=== PATIENT | male | born 1935 | race African-American/Black ===

== ENCOUNTER → 2016-06-03 | Outpatient (REF) | payer MEDICARE, OTHER ==
[~2016-06-03] MED LIST: /ACET5TA PO; /CLON1TA TOP; /HYDR10TAB GT; ALDA25TA2 PO; AMLO10TA2 PO; BISO10TA6 PO; CHLO125TA PO; COZA100T2 PO; HYDR100T13 PO; LEVO75TA3 PO; OMEP20CA3 PO; PRED10TA2 PO; PRIL20CA PO; ducolax PO; hydralazine PO
== END ==
LOC: M LAB REF 16:28
PROVIDERS: ATTEND Internal Medicine
DX: D51.9 Vitamin B12 deficiency anemia, unspecified (principal); E78.5 Hyperlipidemia, unspecified

== ENCOUNTER → 2017-02-28 | Outpatient (REF) | payer MEDICARE, OTHER ==
[2017-02-28 15:24] LABS: BASO % 0.4 % (0.0-1.0); EOS # 0.2 10^3/uL (0.0-0.50); EOS % 3.1 % (0.0-3.0); HEMATOCRIT 37.1 % (42.0-52.0); HEMOGLOBIN 12.2 g/dl (14.0-18.0); IMMATURE GRANULOCYTE % 0.2 % (0-0); LYMPH # 1.7 10^3/uL (1.5-4.5); LYMPH % 32.3 % (24.0-44.0); MEAN CORPUSCULAR HEMOGLOBIN 28.4 pg (27.0-33.0); MEAN CORPUSCULAR HGB CONC 32.9 g/dl (32.0-36.5); MEAN CORPUSCULAR VOLUME 86.5 fl (80.0-96.0); MONO # 0.6 10^3/uL (0.0-0.8); MONO % 11.2 % (0.0-5.0); NEUTROPHILS # 2.8 10^3/uL (1.8-7.7); NEUTROPHILS % 52.8 % (36.0-66.0); PLATELET COUNT, AUTOMATED 228 10^3/uL (150-450); RED BLOOD COUNT 4.29 10^6/uL (4.30-6.10); RED CELL DISTRIBUTION WIDTH 13.6 % (11.5-14.5); WHITE BLOOD COUNT 5.2 10^3/uL (4.0-10.0)
[2017-02-28 15:43] LABS: ERYTHROCYTE SEDIMENTATION RATE 65 mm/hr (0-20)
[2017-02-28 16:04] LABS: ESTIMATED AVERAGE GLUCOSE 123 MG/DL (60-110); HEMOGLOBIN A1c 5.9 %
[2017-02-28 16:17] LABS: FOLATE 14.4 NG/ML; VITAMIN B12 LEVEL 942 PG/ML
[2017-02-28 16:19] LABS: ALKALINE PHOSPHATASE 54 U/L (45-117); ALT/SGPT 18 U/L (12-78); ANION GAP 8 MEQ/L (8-16); AST/SGOT 16 U/L (7-37); BILIRUBIN,TOTAL 0.5 MG/DL (0.2-1.0); BLOOD UREA NITROGEN 21 MG/DL (7-18); CARBON DIOXIDE LEVEL 27 MEQ/L (21-32); CHLORIDE LEVEL 101 MEQ/L (98-107); CPK CREATINE PHOSPHOKINASE 339 U/L (39-308); CREATININE FOR GFR 1.69 MG/DL (0.70-1.30); GLOMERULAR FILTRATION RATE 50.8 (>42); GLUCOSE, FASTING 101 MG/DL (83-110); POTASSIUM SERUM 4.4 MEQ/L (3.5-5.1); RHEUMATOID FACTOR QUANT < 10.0 IU/ML (0-15.0); SODIUM LEVEL 136 MEQ/L (136-145)
[2017-03-03 13:23] LABS: ALBUMIN % 51.1 % (55.8-66.1); ALPHA-1-GLOBULIN % 3.6 % (2.9-4.9); ALPHA-2-GLOBULINS % 13.1 % (7.1-11.8)
[2017-03-03 13:24] LABS: ALBUMIN 4.09 GM/DL (3.29-5.55); ALPHA-1-GLOBULINS 0.29 GM/DL (0.17-0.41); ALPHA-2-GLOBULINS 1.05 GM/DL (0.42-0.99); BETA-1-GLOBULINS 0.47 GM/DL (0.28-0.60); BETA-1-GLOBULINS % 5.9 % (4.7-7.2); BETA-2-GLOBULINS 0.58 GM/DL (0.19-0.55); BETA-2-GLOBULINS % 7.3 % (3.2-6.5); GAMMA GLOBULINS 1.52 GM/DL (0.65-1.58)
[2017-03-04 09:41] LABS: DRVV SCREEN 56.4 SEC
[2017-03-04 09:44] LABS: PTT LUPUS TYPE ANTICOAG SCREEN 1.3 (0-1.2)
[2017-03-04 09:59] LABS: DRVV CONFIRM 42.3 SEC; LUPUS CONFIRM RATIO 1.1
[2017-03-04 10:03] LABS: NORMALIZED RATIO 1.18 (0.00-1.20)
[2017-03-06 00:06] LABS: ANTI DOUBLE STRAND-DNA AB <1 IU/mL (0-9); ANTINUCLEAR ANTIBODIES DIRECT Negative (Negative); Lyme Disease IgG/IgM Antibodie <0.91 ISR (0.00-0.90); Lyme Disease IgM Ab Quantitati <0.80 index (0.00-0.79); SJOGREN'S ANTI SS-A <0.2 AI (0.0-0.9); SJOGREN'S ANTI SS-B <0.2 AI (0.0-0.9); VITAMIN B1 LEVEL WHOLE BLOOD 85.7 nmol/L (66.5-200.0); VITAMIN B6,PYRIDOXAL PHOSPHATE 8.4 ug/L (5.3-46.7); VITAMIN E LEVEL 12.4 mg/L (5.3-17.5)
== END ==
LOC: M LABNEURO 11:02
DX: G62.9 Polyneuropathy, unspecified (principal)
CPT/HCPCS: 82550

== ENCOUNTER 2017-12-02 17:32 | Emergency (ER) | payer MEDICARE, OTHER ==
[2017-12-02 18:18] LABS: BASO % 0.5 % (0.0-1.0); EOS # 0.3 10^3/uL (0.0-0.50); EOS % 6.5 % (0.0-3.0); HEMATOCRIT 36.7 % (42.0-52.0); IMMATURE GRANULOCYTE % 0.5 % (0-3.0); LYMPH # 1.5 10^3/uL (1.5-4.5); LYMPH % 35.1 % (24.0-44.0); MEAN CORPUSCULAR HEMOGLOBIN 28.8 pg (27.0-33.0); MEAN CORPUSCULAR HGB CONC 32.7 g/dl (32.0-36.5); MEAN CORPUSCULAR VOLUME 88.2 fl (80.0-96.0); MONO # 0.6 10^3/uL (0.0-0.8); MONO % 13.3 % (0.0-5.0); NEUTROPHILS # 1.9 10^3/uL (1.8-7.7); NEUTROPHILS % 44.1 % (36.0-66.0); PLATELET COUNT, AUTOMATED 233 10^3/uL (150-450); RED BLOOD COUNT 4.16 10^6/uL (4.30-6.10); RED CELL DISTRIBUTION WIDTH 13.6 % (11.5-14.5); WHITE BLOOD COUNT 4.3 10^3/uL (4.0-10.0)
[2017-12-02 18:39] LABS: ANION GAP 9 MEQ/L (8-16); BLOOD UREA NITROGEN 18 MG/DL (7-18); CALCIUM LEVEL 9.1 MG/DL (8.8-10.2); CARBON DIOXIDE LEVEL 27 MEQ/L (21-32); CHLORIDE LEVEL 103 MEQ/L (98-107); CPK CREATINE PHOSPHOKINASE 334 U/L (39-308); CREATININE FOR GFR 1.61 MG/DL (0.70-1.30); GLOMERULAR FILTRATION RATE 53.5 (>35); GLUCOSE, FASTING 89 MG/DL (70-100); MB/CK RELATIVE INDEX 1.35 (< OR =4); POTASSIUM SERUM 4.3 MEQ/L (3.5-5.1); SODIUM LEVEL 139 MEQ/L (136-145); TROPONIN I < 0.02 NG/ML (< 0.10)
[2017-12-02] MEDS: GASTROGRAFIN SOLUTION 30ML PO ×2 (21:20→21:45)
== END 2017-12-03 00:23 | disposition home or self-care (01) ==
LOC: M ED 12-03 00:23
DX: R55 Syncope and collapse (principal); G20 Parkinson's disease; K59.00 Constipation, unspecified; R00.1 Bradycardia, unspecified; I10 Essential (primary) hypertension; G25.81 Restless legs syndrome; Z79.899 Other long term (current) drug therapy; Z88.8 Allergy status to other drugs, medicaments and biological substances; Z91.013 Allergy to seafood
CPT/HCPCS: Q9963

== ENCOUNTER → 2018-07-17 | Outpatient (REF) | payer MEDICARE, OTHER ==
[~2018-07-17] MED LIST changes: -/ACET5TA PO; -/CLON1TA TOP; -/HYDR10TAB GT; +ACET1TAB18 PO; +ALLO10TA PO; +CARB25TA9 PO; +CLON-412 TOP; +COLC1TAB13 PO; +CYAN1000VL IM; +FLOM0.4C39 PO; +FURO20TA2 PO; +HYDR-3677 GT; +HYDR25TA PO; +LEVO100T5 PO; +LOSA100T50 PO; +MELO15TA28 PO; +MIRA3350 PO; +OMEP10CASR PO; +ROPI0.253 PO; +SILD100T PO; +SING10TA32 PO; +SPIR-10 PO; +VITA100066 PO
== END ==
LOC: M LAB REF 15:35
PROVIDERS: ATTEND Internal Medicine
DX: D51.9 Vitamin B12 deficiency anemia, unspecified (principal); D72.819 Decreased white blood cell count, unspecified

== ENCOUNTER → 2018-08-05 | Outpatient (CLI) | payer MEDICARE, OTHER ==
[~2018-08-05] MED LIST changes: +E-Z-GAS II EFFERVESCENT PACKET (SODIUM BICARB./CITRIC ACID/SIMETHICONE) As Ordered ONE; +E-Z-HD 98% w/w 340GM SUSP BTL As Ordered ONE; +E-Z-PAQUE 96% w/w SUSP 176GM BTL As Ordered ONE
--- NOTE | 2018-08-05 16:39 | REP ---
Upper GI Air Contrast with SBFT The procedure was performed by FORTUNATO Crouch, under the the direct supervision of Dr. Lagos. The images were reviewed with Dr. Lagos. 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 The intestinal gas pattern appears normal. Liquid barium and gas producing crystals were given in the erect position as well as liquid barium in the prone position in order to perform a double contrast upper GI examination. The oral and pharyngeal stages of deglutition were unremarkable. Esophageal transport is efficient and there is no esophagitis, stricture, or mucosal ring noted. There is a small hiatal hernia. Gastroesophageal reflux was observed to the level of the jaleel. The stomach bartholomew are normally outlined. The rugal folds are smooth and regular. There is no gastritis, neoplasm, or ulcer disease noted. The duodenal bartholomew are normally outlined. The mucosal folds are smooth and regular. There is no duodenitis, peptic ulcer disease, or neoplasm noted. There is a large diverticulum of the transverse duodenum measuring approximately 4.7 x 4.1 cm. The remaining visualized portion of the proximal small bowel appears normal in course and caliber. The barium column was followed through the small bowel to the level of the terminal ileum. Small bowel transit time was approximately 120 minutes. During fluoroscopy gentle palpation shows all loops are freely mobile and pliable. There are no fixed or angulated loops. The small bowel mucosal pattern is normal in course and caliber. There is no transition to set suggest a partial small-bowel obstruction. Spot filming of the terminal ileum shows it to be unremarkable. Impression: 1. 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 2. Small hiatal hernia. 3. Gastroesophageal reflux to the level of the jaleel. 1.9 minutes of fluoroscopy time was utilized for this procedure. Reviewed by FORTUNATO De La Fuente 08/05/2018 03:52 P Electronically Signed by Giles Lagos MD 08/05/2018 04:31 P
== END ==
LOC: M RAD 07:59
PROVIDERS: ATTEND Internal Medicine
DX: K57.10 Diverticulosis of small intestine without perforation or abscess without bleeding (principal); K44.9 Diaphragmatic hernia without obstruction or gangrene; K21.9 Gastro-esophageal reflux disease without esophagitis